=== PATIENT | male | born 1950 | race Caucasian/White ===

== ENCOUNTER 2017-03-12 19:07 | Emergency (ER) | payer MEDICARE ==
[~2017-03-12] VITALS: Ht 182.9 cm; Wt 108.9 kg
[~2017-03-12 19:07] MED LIST: IBUPROFEN600 MG PO; ROBAXIN-750750 MG PO
== END 2017-03-13 01:35 | disposition home or self-care (01) ==
LOC: ED 19:07
DX: T84.021A Dislocation of internal left hip prosthesis, initial encounter (principal); Z96.643 Presence of artificial hip joint, bilateral; S72.8X2A Other fracture of left femur, initial encounter for closed fracture; X58.XXXA Exposure to other specified factors, initial encounter; Y93.89 Activity, other specified; Y92.89 Other specified places as the place of occurrence of the external cause; Y99.9 Unspecified external cause status
CPT/HCPCS: 27250; 73501; 73502; 96374; 96376; 99156; 99283; J1170